=== PATIENT | female | born 1985 | race Caucasian/White ===

== ENCOUNTER 2016-06-21 11:42 | Emergency (ER) | payer OTHER ==
[2016-06-21 11:45] VITALS: TEMP 36.5; Ht 162.6 cm
[2016-06-21] MEDS ORDERED: CEPH500C PO (12:25)
[2016-06-21] MEDS ORDERED: SULF800T23 PO (12:25)
[2016-06-21] MEDS ORDERED: HYDR-5688 PO (12:27)
--- NOTE | 2016-06-21 12:27 | EMERGENCY ROOM VISIT NOTE ---
ED Visit Note First contact with patient: 11:52 CHIEF COMPLAINT: Left foot pain 4 days HISTORY OF PRESENT ILLNESS: Patient is a 31-year-old white female who presents to emergency department for evaluation of right foot pain 4 days. She states that her symptoms started 4 days ago with pain in the arch of her left foot only with weightbearing. Her symptoms markedly worsen 2 days ago, when the pain became more constant. She also noticed that the bottom of her foot became red, warm to the touch and swollen. It woke her from sleep that evening which prompted her to go to the emergency department at [facility]. She had x- rays performed which were negative and she was diagnosed with plantar fasciitis. She was prescribed ibuprofen 600 mg every 8 hours and prednisone for which she has taken one dose. She has applied ice to the foot. The ibuprofen is not helping with her pain. She notes pressure and tightness in the arch of her foot. She does have an appointment with a test case developer this coming week. She reports a history of cellulitis in her right lower extremity that was treated with Bactrim. She denies any history of MRSA. She does note some chronic scaling and cracking in the bottoms of her feet, but denies any trauma, falls or known skin injuries. She denies any fever or chills. There is been no drainage or discharge. There is no pain radiating into the calf or lower leg. She denies any numbness or tingling. REVIEW OF SYSTEMS: Review of systems as per HPI. All other systems reviewed were negative. At least 6 systems reviewed. PMH: Electronic medical records are reviewed and summarized as above/below. See Problem List. Her tetanus is up-to-date. SOCIAL HISTORY: Patient lives at home with her family. Employed. PHYSICAL EXAM: Vital Signs: Reviewed Nurse's notes. GENERAL: Well-appearing 31- year-old white female who is awake and alert and in no acute distress. She is afebrile. NEUROLOGICAL: Alert and cooperative. Sensory and motor functions grossly intact. INTEGUMENTARY: Examination of the plantar aspect of the patient's left foot noted moderate callus formation, cracking of the skin of the heel and ball of the foot. The arch of the foot is slightly swollen, and is warm to the touch. It is moderately tender. She does not have any pain over the heel pad or over the metatarsal heads. The toes are spared. There is no fluctuance or pointing noted. It is moderately indurated. There is no pain over the plantar aspect of the foot. No pain over the ankle. No lymphangitic streaking is noted. Full foot and ankle range of motion. EMERGENCY DEPARTMENT COURSE: The patient was seen and evaluated as above. There are concerns regarding infection in the bottom of her foot due to cracking and scaling. She had x-rays recently which were reportedly negative. She has no constitutional signs of illness or infection. I do not suspect abscess at this time and it was not felt that any additional imaging was warranted at this point. Osteomyelitis was felt to be unlikely. She was placed on Keflex and Bactrim and was educated on the worrisome signs or symptoms of infection for which she should return to the emergency department. She was advised to follow-up with her primary care provider and with the test case developer as she has scheduled. She was placed in a postoperative shoe and issued crutches. She was given a small prescription for [place] to use for discomfort. Patient was reviewed in the [facility] Prescription Drug Monitoring Program, and it was noted that she receives regular benzodiazepine prescriptions from her primary care providers, but no narcotics. Problem List Medical Problems: (1) Morbid obesity Status: Chronic Surgical Problems: (1) Hx of section Status: Resolved (2) Hx of cholecystectomy Status: Resolved Current/Historical Medications Scheduled Cephalexin Monohydrate (Keflex), 500 MG PO QID Citalopram Hydrobromide (Celexa), 20 MG PO HS Sulfa/Trimethoprim (Bactrim Ds 800MG/160MG), 1 TAB PO BID Scheduled PRN Alprazolam (Xanax), 0.5 MG PO DAILY PRN for Anxiety Hydrocodone/Acetaminophen 5MG/325MG ([place] 5MG/325MG), 1-2 TABLETS PO Q4 PRN for Pain Allergies Coded Allergies: Nickel (Verified Allergy, Intermediate, HIVES, 06/21/16) Amoxicillin (Verified Allergy, Unknown, HIVES, 06/21/16) Clavulanic Acid (Verified Allergy, Unknown, HIVES, 06/21/16) Penicillins (Verified Allergy, Unknown, HIVES, 06/21/16) Vital Signs Date Time Temp Pulse Resp B/P Pulse Ox O2 Delivery O2 Flow Rate FiO2 06/21/16 12:45 89 18 149/117 95 4/22/17 11:45 36.5 89 18 149/117 95 Room Air Departure Information Impression Primary Impression: Cellulitis of left foot Prescriptions Hydrocodone/Acetaminophen 5MG/325MG ([place] 5MG/325MG) Tab 1-2 TABLETS PO Q4 Y for Pain, #15 TAB For Initial Treatment Prov: Iraida Mercer PA 06/21/16 Sulfa/Trimethoprim (Bactrim Ds 800MG/160MG) Tab 1 TAB PO BID, #20 TAB Prov: Iraida Mercer PA 06/21/16 Cephalexin Monohydrate (Keflex) 500 Mg Cap 500 MG PO QID, #40 CAP Prov: Iraida Mercer PA 06/21/16 Referrals Maxx Lebron D.OHari (PCP) Patient Instructions My [facility] Additional Instructions Stop prednisone. Hydrocodone/Acetaminophen ([place]) 5/325 mg: Take 1-2 pills every four hours for breakthrough pain. Avoid alcohol, operating machinery or dangerous equipment, working on ladders or roofs, DRIVING, or situations where being under the influence may be dangerous. It is recommended to use an [id number] stool softener such as Colace, 100mg twice daily while taking this medication to avoid constipation. Cephalexin(Keflex) 500mg: Take one pill four times daily for 10 days for your skin infection. All antibiotics can cause diarrhea. If this occurs and you feel worse or it does not resolve in 1-2 days follow up with your doctor or return to the Emergency Department as this could be signs of serious underlying problems. Any medication can cause an allergic reaction, stop the pills immediately and return to the ER for rash, hives, breathing difficulties, or swelling. Trimethoprim-Sulfamethoxazole(Bactrim DS): Take one pill twice daily for 10 days for your skin infection. All antibiotics can cause diarrhea. If this occurs and you feel worse or it does not resolve in 1-2 days follow up with your doctor or return to the Emergency Department as this could be signs of serious underlying problems. Any medication can cause an allergic reaction, stop the pills immediately and return to the ER for rash, hives, breathing difficulties, or swelling. Ibuprofen(Motrin, Advil) may be used for fever or pain. Use 600mg every six hours as needed. Take with food. Avoid using more than 2400mg in a 24 hour period. Do not use 2400mg per day for more than three consecutive days without physician direction. Prolonged inappropriate use can lead to stomach upset or ulcers. (AND/OR) Acetaminophen(Tylenol) may be used for fever or pain. Use 1000mg every six hours as needed. Avoid using more than 3000mg in a 24 hour period. Warm compresses to the affected area 4 times daily for 15-20 minutes. Rest and drink plenty of fluids. Continue current medications. Return to the ER for severe pain, persistent fevers, spreading redness, or any worsening of your condition. Follow up with your primary physician within 2-3 days for a recheck of the current condition.
[2016-06-21] MEDS ORDERED: ALPR-411 PO (12:30)
[2016-06-21] MEDS ORDERED: CITA20TA9 PO (12:30)
[2016-06-21 12:45] VITALS: BP 149/117; PULSE 89; O2SAT 95
== END 2016-06-21 12:49 | disposition home or self-care (01) ==
LOC: C.EDB 11:44 → C.EDD 12:49
DX: L03.116 Cellulitis of left lower limb (principal); Z88.0 Allergy status to penicillin; Z88.1 Allergy status to other antibiotic agents; Z88.8 Allergy status to other drugs, medicaments and biological substances; Z91.09 Other allergy status, other than to drugs and biological substances; Z90.49 Acquired absence of other specified parts of digestive tract

== ENCOUNTER 2017-05-07 00:21 | Observation (INO) | payer OTHER ==
[~2017-05-07] VITALS: Ht 162.6 cm; Wt 182.5 kg
[2017-05-07] VITALS (10 sets, daily range): BP systolic 112–143; BP diastolic 70–92; PULSE 75–96; TEMP 36.5–36.8; O2SAT 95–98; Ht 162.6 cm; Wt 182.5 kg
[~2017-05-07 00:21] MED LIST: ALPR-411 PO; CITA20TA9 PO
[2017-05-07] MEDS ORDERED: LORAZEPAM 2 MG/ML 1 ML VIAL IV STA (00:37)
[2017-05-07] MEDS ORDERED: ASPIRIN 81 MG CHEW PO STA (00:52)
[2017-05-07] MEDS ORDERED: NITROGLYCERIN 0.4 MG SL PER TAB CHARGE SL STA (00:52)
[2017-05-07 01:07] LABS: ALBUMIN 3.7 gm/dl (3.4-5.0); ALT/SGPT 30 U/L (12-78); BLOOD UREA NITROGEN 18 mg/dl (7-18); CARBON DIOXIDE 28 mmol/L (21-32); GLUCOSE 104 mg/dl (70-99); LIPASE 71 U/L (73-393); POTASSIUM 3.4 mmol/L (3.5-5.1); SODIUM 139 mmol/L (136-145)
[2017-05-07 01:12] LABS: ALKALINE PHOSPHATASE 92 U/L (45-117); AST/SGOT 18 U/L (15-37); TOTAL PROTEIN 7.9 gm/dl (6.4-8.2)
[2017-05-07] MEDS ORDERED: POTASSIUM CHLORIDE 10 MEQ TABCR PO STA (01:14)
[2017-05-07 01:19] LABS: BASO % 0.2 %; BASO ABS # 0.03 K/uL (0-0.2); EOS % 2.5 %; EOS ABS # 0.32 K/uL (0-0.5); HEMATOCRIT 40.2 % (37-47); HEMOGLOBIN 12.6 g/dL (12.0-16.0); IG# 0.07 K/uL (0.00-0.02); LYMPH % 33.6 %; LYMPH ABS # 4.28 K/uL (1.2-3.4); MEAN CELL VOLUME 80.1 fL (80-100); MEAN CORPUSCULAR HEMOGLOBIN 25.1 pg (25-34); MEAN CORPUSCULAR HGB CONC 31.3 g/dl (32-36); MEAN PLATELET VOLUME 9.9 fL (7.4-10.4); MONO % 7.7 %; MONO ABS # 0.98 K/uL (0.11-0.59); NEUT % 55.4 %; NEUT ABS # 7.04 K/uL (1.4-6.5); PLATELET COUNT 217 K/uL (130-400); RED CELL DISTRIBUTION WIDTH CV 15.5 % (11.5-14.5); RED CELL DISTRIBUTION WIDTH SD 44.9 fL (36.4-46.3); WHITE BLOOD COUNT 12.72 K/uL (4.8-10.8)
--- NOTE | 2017-05-07 01:25 | EMERGENCY ROOM VISIT NOTE ---
History First contact with patient: 00:25 Chief Complaint: CHEST PAIN Stated Complaint: CHEST PAIN,SOB Nursing Triage Summary: PT presents with mid sternal chest pain started about 10 mins [employer] while PT was exercising. PT developed sudden onset of sharp mid sternal pain worse with movement and deep breathing. PT has SOB. denies N/A. PT is diaphoretic at this time. History of Present Illness The patient is a 32 year old female who presents to the Emergency Room with complaints of midsternal chest pain described as discomfort, ranging severity 8 out of 10. Activity makes it worse nothing makes it better. It does not radiate. Patient had a stress test a few years ago that was normal. No prior heart disease. This is the first time the patient has exercise. She was doing circuit training in the gym when she developed the chest pain. Patient states walking into the hospital made her symptoms worse. Nothing makes it better. Patient states there is a distant history of heart disease. Patient does not smoke. No known diabetes blood pressure cholesterol. Patient is morbidly obese. Patient states she feels quite anxious nauseous and sweaty. Patient denies dyspnea, abdominal pain, vomiting, diarrhea, back pain, jaw pain, leg pain or swelling, recent travel. No control. No history of blood clots. Review of Systems An 10 system review of systems was completed with positives and pertinent negatives listed in the HPI. Past Medical/Surgical History Medical Problems: (1) Morbid obesity Surgical Problems: (1) Hx of section (2) Hx of cholecystectomy Social History Smoking Status: Never Smoker Smokeless Tobacco Use: No Alcohol Use: none Drug Use: none Housing Status: lives with family Current/Historical Medications Scheduled Citalopram Hydrobromide (Celexa), 20 MG PO HS Scheduled PRN Alprazolam (Xanax), 0.5 MG PO DAILY PRN for Anxiety Physical Exam Vital Signs Date Time Temp Pulse Resp B/P (MAP) Pulse Ox O2 Delivery O2 Flow Rate FiO2 05/07/17 01:09 95 18 131/81 99 Room Air 05/07/17 01:05 85 22 136/91 100 Room Air 05/07/17 00:30 98 Room Air 05/07/17 00:30 98 Room Air 05/07/17 00:23 36.4 96 32 141/95 100 Room Air Physical Exam VITALS: Vitals are noted on the nurse's note and reviewed by myself. Vital signs hypertensive. GENERAL: White female morbidly obese anxious appearing mildly diaphoretic, in no acute distress, nondiaphoretic, well-developed well-nourished. SKIN: The skin was without rashes, erythema, edema, or bruising. There is no tenting of the skin. Capillary reflex less than 2 seconds. HEAD: Normocephalic atraumatic. EARS: External auditory canals clear, tympanic membranes pearly garcia without erythema or effusion bilaterally. EYES: Pupils equal round and reactive to light and accommodation. Conjunctivae without injection, sclerae without icterus. Extraocular movements intact. NOSE: Patent, turbinates without inflammation or discharge. . MOUTH: Mucous membranes moist. Pharynx without erythema or exudate. Uvula midline. Airway patent. Tongue does not deviate. NECK: Supple without nuchal rigidity. No lymphadenopathy. No thyromegaly. Cervical spine is nontender. No JVD. HEART: Regular rate and rhythm without murmurs gallops or rubs. Minimally tender to palpation midsternal. LUNGS: Clear to auscultation bilaterally without wheezes, rales or rhonchi. No retractions or accessory muscle use. ABDOMEN: Positive bowel sounds x 4. Normal tympanic percussion. Soft, protuberant, obese, nontender, without masses or organomegaly. Hudson sign negative. No guarding or rebound tenderness. No CVA tenderness MUSCULOSKELETAL: No muscle atrophy, erythema, noted. NEURO: Patient was alert and oriented to person place and time. Normal sensation to light and sharp touch. No focal neurological deficits. Medical Decision & Procedures Laboratory Results 05/07/17 00:30 Red Blood Count 5.02, Mean Corpuscular Volume 80.1, Mean Corpuscular Hemoglobin 25.1, Mean Corpuscular Hemoglobin Concent 31.3, Mean Platelet Volume 9.9, Neutrophils (%) (Auto) 55.4, Lymphocytes (%) (Auto) 33.6, Monocytes (%) (Auto) 7.7, Eosinophils (%) (Auto) 2.5, Basophils (%) (Auto) 0.2, Neutrophils # (Auto) 7.04, Lymphocytes # (Auto) 4.28, Monocytes # (Auto) 0.98, Eosinophils # (Auto) 0.32, Basophils # (Auto) 0.03 05/07/17 00:30 Test 05/07/17 00:30 05/07/17 00:39 White Blood Count 12.72 K/uL (4.8-10.8) Red Blood Count 5.02 M/uL (4.2-5.4) Hemoglobin 12.6 g/dL (12.0-16.0) Hematocrit 40.2 % (37-47) Mean Corpuscular Volume 80.1 fL (80-100) Mean Corpuscular Hemoglobin 25.1 pg (25-34) Mean Corpuscular Hemoglobin Concent 31.3 g/dl (32-36) Platelet Count 217 K/uL (130-400) Mean Platelet Volume 9.9 fL (7.4-10.4) Neutrophils (%) (Auto) 55.4 % Lymphocytes (%) (Auto) 33.6 % Monocytes (%) (Auto) 7.7 % Eosinophils (%) (Auto) 2.5 % Basophils (%) (Auto) 0.2 % Neutrophils # (Auto) 7.04 K/uL (1.4-6.5) Lymphocytes # (Auto) 4.28 K/uL (1.2-3.4) Monocytes # (Auto) 0.98 K/uL (0.11-0.59) Eosinophils # (Auto) 0.32 K/uL (0-0.5) Basophils # (Auto) 0.03 K/uL (0-0.2) RDW Standard Deviation 44.9 fL (36.4-46.3) RDW Coefficient of Variation 15.5 % (11.5-14.5) Immature Granulocyte % (Auto) 0.6 % Immature Granulocyte # (Auto) 0.07 K/uL (0.00-0.02) Anion Gap 7.0 mmol/L (3-11) Est Creatinine Clear Calc Drug Dose 144.2 ml/min Estimated GFR () 98.1 Estimated GFR (Non- 84.6 BUN/Creatinine Ratio 20.0 (10-20) Calcium Level 9.0 mg/dl (8.5-10.1) Total Bilirubin 0.3 mg/dl (0.2-1) Direct Bilirubin < 0.1 mg/dl (0-0.2) Aspartate Amino Transf (AST/SGOT) 18 U/L (15-37) Alanine Aminotransferase (ALT/SGPT) 30 U/L (12-78) Alkaline Phosphatase 92 U/L (45-117) Troponin I < 0.015 ng/ml (0-0.045) Total Protein 7.9 gm/dl (6.4-8.2) Albumin 3.7 gm/dl (3.4-5.0) Lipase 71 U/L (73-393) Human Chorionic Gonadotropin, Qual NEG (NEG) Bedside Troponin I < 0.030 ng/ml (0-0.045) Medications Administered Medications (Trade) Dose Ordered Sig/Sunni Route Start Time Stop Time Status Last Admin Dose Admin Lorazepam (Ativan Inj) 1 mg NOW STAT IV 05/07/17 00:37 05/07/17 00:38 DC 05/07/17 00:44 1 MG Aspirin (Aspirin Chew) 324 mg NOW STAT PO 05/07/17 00:52 05/07/17 00:53 DC 05/07/17 01:04 324 MG Nitroglycerin (Nitrostat Tab) 0.4 mg NOW STAT SL 05/07/17 00:52 05/07/17 00:53 DC 05/07/17 00:52 0.4 MG Potassium Chloride (Klor-Con M10) 10 meq NOW STAT PO 05/07/17 01:14 05/07/17 01:15 DC 05/07/17 01:14 10 MEQ ED Course Prior records/ancillary studies reviewed. Triage Nursing notes reviewed. The patient's history was concerning for chest pain. Differential diagnosis: Etiologies such as cardiac ischemia, aortic dissection, pulmonary embolism, pneumonia, pneumothorax, musculoskeletal, infections, pericarditis, myocarditis , esophageal rupture, gastrointestinal, as well as others were entertained. Physical examination: As above. ER treatment provided: Ativan, aspirin, nitroglycerin On reassessment the patient felt better. Diagnostic interpretation by me: The electrocardiogram was T-wave inversions and minimal ST depression in 1 and aVL, normal axis, normal intervals, rate of 86. EKG compared to prior EKG from April [address] depression and T-wave inversions in the anterior leads. Impression normal sinus rhythm with new ST depression and T-wave inversions in the anterior leads interpreted by myself The labs revealed negative troponin, negative hCG Imaging studies: Chest x-ray with no acute consolidation, pneumothorax or free of my depression Consultation: A consultation was placed with the hospitalist, Dr Rendon. The case was discussed and diagnostics were reviewed. The patient was evaluated in the ER for further treatment. Exam and history seem consistent with chest pain that could be cardiac in etiology. Patient did initially have EKG changes. She was given aspirin nitroglycerin and Ativan. This did resolve though. I reviewed her prior stress tests from 2016 that was normal. Patient had a normal EKG then. Patient will be evaluated by medicine for possible admission. By the evaluation outlined above emergent etiologies such as aortic dissection , pulmonary embolism, pneumonia, pneumothorax, infections, pericarditis, myocarditis, gastrointestinal, as well as others were deemed relatively unlikely. The pt informed about the findings as listed above. All questions were answered and pleased with the treatment. case reviewed with my Attending. The chart was completed utilizing [employer] Speech voice recognition software. Grammatical errors, random word insertions, pronoun errors, and incomplete sentences are an occassional consequence of this system due to software limitations, ambient noise, and hardware issues. Any formal questions or concerns about the content, text, or information contained within the body of this dictation should be directly addressed to the physician psychological assistant for clarification. Medical Decision As above Medication Reconcilliation Current Medication List: was personally reviewed by me Blood Pressure Screening Patient's blood pressure: Elevated blood pressure Blood pressure disposition: Elevated BP felt to be situational Impression Primary Impression: Substernal precordial chest pain Departure Information Dispostion Being Evaluated By Hospitalist Condition FAIR Referrals Maxx Lebron D.O. (PCP) Patient Instructions My [facility]
[2017-05-07] MEDS ORDERED: CITA10TA4 PO (01:29)
[2017-05-07] MEDS ORDERED: IV FLUIDS COMPLETED PRN (03:30)
[2017-05-07] MEDS ORDERED: ALPRAZOLAM 0.5 MG TAB PO PRN (03:45)
[2017-05-07] MEDS ORDERED: MoRPHine SULFATE 2 MG/ML CARP IV PRN (03:45)
[2017-05-07] MEDS ORDERED: ACETAMINOPHEN 325 MG TAB PO PRN ×2 (03:45→11:15)
[2017-05-07] MEDS ORDERED: NITROGLYCERIN 0.4 MG SL PER TAB CHARGE SL PRN (03:45)
[2017-05-07] MEDS ORDERED: POLYETHYLENE (MIRALAX) 17 GM PACK PO PRN (03:45)
[2017-05-07] MEDS ORDERED: ONDANSETRON INJ 2 MG/ML 2 ML VIAL IV PRN ×2 (03:45→11:15)
--- NOTE | 2017-05-07 03:57 | History and Physical ---
History & Physical Date & Time of Service: May 07, 2017 at 03:44 Chief Complaint: Chest Pain Primary Care Physician: Maxx Lebron D.O. History of Present Illness Source: patient, family, clinic records, hospital records The patient is a 32-year-old female presenting to the emergency room with midsternal chest pain after an intense workout at the gym. She reports that her chest pain came on after getting finished with the workout she is a non- smoker who has no known risk factors for cardiac disease other than obesity. She reports feeling anxious, nauseous, and sweaty in association with the pain. She denies any shortness of breath abdominal pain, vomiting, diarrhea, no back pain, or control or history of blood clots. 3 years ago she reports having chest pain with during a walking routine and received a stress test that was normal. She reports that nitroglycerin given in the ER took the chest pain away. She received aspirin 325 mg. In the ER she was afebrile and hemodynamically stable saturating 100% on room air. Physical exam was remarkable for minimal tenderness to palpation in the midsternal region. Lab results revealed a white blood cell count of 12,000, the patient has normal renal function. Troponin was negative. The ER physician noted T-wave inversions and minimal ST depressions in 1 and aVL on each rate of 86. These changes normalized with resolution of pain. Chest x-ray was performed with no acute consolidation pneumothorax. Of note she has a history of panic attacks and anxiety and was given a dose of Ativan in the ER that did not resolve. she reports new directions in her life that are positive with anxiety under control for the most part. Past Medical/Surgical History Medical Problems: (1) Abnormal Pap smear of cervix Status: Chronic (2) Anxiety Status: Chronic (3) Morbid obesity Status: Chronic (4) Morbid obesity Status: Chronic (5) Panic attacks Status: Chronic Surgical Problems: (1) Hx of section Status: Resolved (2) Hx of cholecystectomy Status: Resolved (3) S/P Status: Chronic (4) S/P suzette Status: Chronic Family History Patient reports no known family medical history. 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) Immunizations History of Influenza Vaccine: Yes Influenza Vaccine Date: Oct 31, 2014 History of Tetanus Vaccine?: Yes Tetanus Immunization Date: Sep 09, 2012 History of Pneumococcal: No History of Hepatitis B Vaccine: No Allergies Coded Allergies: Nickel (Verified Allergy, Intermediate, HIVES, 06/21/16) Amoxicillin (Verified Allergy, Unknown, HIVES, 06/21/16) Clavulanic Acid (Verified Allergy, Unknown, HIVES, 06/21/16) Penicillins (Verified Allergy, Unknown, HIVES, 06/21/16) Home Medications Scheduled Citalopram Hydrobromide (Citalopram Hydrobromide), 10 MG PO HS Scheduled PRN Alprazolam (Xanax), 0.5 MG PO TID PRN for Anxiety Review of Systems At least 10 systems were reviewed and negative except as indicated in HPI above Physical Exam Vital Signs Date Time Temp Pulse Resp B/P (MAP) Pulse Ox O2 Delivery O2 Flow Rate FiO2 05/07/17 02:41 97 18 124/77 98 Room Air 05/07/17 01:21 97 20 120/75 96 Room Air 05/07/17 01:09 95 18 131/81 99 Room Air 05/07/17 01:05 85 22 136/91 100 Room Air 05/07/17 00:30 98 Room Air 05/07/17 00:30 98 Room Air 05/07/17 00:23 36.4 96 32 141/95 100 Room Air General Appearance: no apparent distress, + obese Head: normocephalic, atraumatic Eyes: normal inspection, PERRL, sclerae normal ENT: normal ENT inspection, pharynx normal Neck: supple, no adenopathy, trachea midline Respiratory/Chest: chest non-tender, lungs clear, normal breath sounds, no respiratory distress, no accessory muscle use Cardiovascular: no edema, no gallop, no JVD, no murmur, normal peripheral pulses, + tachycardia Abdomen/GI: normal bowel sounds, non tender, soft, no organomegaly Back: normal inspection Extremities/Musculoskelatal: normal inspection, no calf tenderness, no pedal edema, normal range of motion Neurologic/Psych: director clinical information services II-XII nml as tested, no motor/sensory deficits, alert, normal mood/affect, oriented x 3 Skin: normal color, warm/dry, no rash Diagnostics Laboratory Results 05/07/17 00:30 Red Blood Count 5.02, Mean Corpuscular Volume 80.1, Mean Corpuscular Hemoglobin 25.1, Mean Corpuscular Hemoglobin Concent 31.3, Mean Platelet Volume 9.9, Neutrophils (%) (Auto) 55.4, Lymphocytes (%) (Auto) 33.6, Monocytes (%) (Auto) 7.7, Eosinophils (%) (Auto) 2.5, Basophils (%) (Auto) 0.2, Neutrophils # (Auto) 7.04, Lymphocytes # (Auto) 4.28, Monocytes # (Auto) 0.98, Eosinophils # (Auto) 0.32, Basophils # (Auto) 0.03 05/07/17 00:30 Test 05/07/17 00:30 05/07/17 00:39 White Blood Count 12.72 K/uL (4.8-10.8) Red Blood Count 5.02 M/uL (4.2-5.4) Hemoglobin 12.6 g/dL (12.0-16.0) Hematocrit 40.2 % (37-47) Mean Corpuscular Volume 80.1 fL (80-100) Mean Corpuscular Hemoglobin 25.1 pg (25-34) Mean Corpuscular Hemoglobin Concent 31.3 g/dl (32-36) Platelet Count 217 K/uL (130-400) Mean Platelet Volume 9.9 fL (7.4-10.4) Neutrophils (%) (Auto) 55.4 % Lymphocytes (%) (Auto) 33.6 % Monocytes (%) (Auto) 7.7 % Eosinophils (%) (Auto) 2.5 % Basophils (%) (Auto) 0.2 % Neutrophils # (Auto) 7.04 K/uL (1.4-6.5) Lymphocytes # (Auto) 4.28 K/uL (1.2-3.4) Monocytes # (Auto) 0.98 K/uL (0.11-0.59) Eosinophils # (Auto) 0.32 K/uL (0-0.5) Basophils # (Auto) 0.03 K/uL (0-0.2) RDW Standard Deviation 44.9 fL (36.4-46.3) RDW Coefficient of Variation 15.5 % (11.5-14.5) Immature Granulocyte % (Auto) 0.6 % Immature Granulocyte # (Auto) 0.07 K/uL (0.00-0.02) Anion Gap 7.0 mmol/L (3-11) Est Creatinine Clear Calc Drug Dose 144.2 ml/min Estimated GFR () 98.1 Estimated GFR (Non- 84.6 BUN/Creatinine Ratio 20.0 (10-20) Calcium Level 9.0 mg/dl (8.5-10.1) Total Bilirubin 0.3 mg/dl (0.2-1) Direct Bilirubin < 0.1 mg/dl (0-0.2) Aspartate Amino Transf (AST/SGOT) 18 U/L (15-37) Alanine Aminotransferase (ALT/SGPT) 30 U/L (12-78) Alkaline Phosphatase 92 U/L (45-117) Troponin I < 0.015 ng/ml (0-0.045) Total Protein 7.9 gm/dl (6.4-8.2) Albumin 3.7 gm/dl (3.4-5.0) Lipase 71 U/L (73-393) Human Chorionic Gonadotropin, Qual NEG (NEG) Bedside Troponin I < 0.030 ng/ml (0-0.045) Results Past 24 Hours Test 05/07/17 00:30 05/07/17 00:39 Range/Units White Blood Count 12.72 4.8-10.8 K/uL Red Blood Count 5.02 4.2-5.4 M/uL Hemoglobin 12.6 12.0-16.0 g/dL Hematocrit 40.2 37-47 % Mean Corpuscular Volume 80.1 80-100 fL Mean Corpuscular Hemoglobin 25.1 25-34 pg Mean Corpuscular Hemoglobin Concent 31.3 32-36 g/dl Platelet Count 217 130-400 K/uL Mean Platelet Volume 9.9 7.4-10.4 fL Neutrophils (%) (Auto) 55.4 % Lymphocytes (%) (Auto) 33.6 % Monocytes (%) (Auto) 7.7 % Eosinophils (%) (Auto) 2.5 % Basophils (%) (Auto) 0.2 % Neutrophils # (Auto) 7.04 1.4-6.5 K/uL Lymphocytes # (Auto) 4.28 1.2-3.4 K/uL Monocytes # (Auto) 0.98 0.11-0.59 K/uL Eosinophils # (Auto) 0.32 0-0.5 K/uL Basophils # (Auto) 0.03 0-0.2 K/uL RDW Standard Deviation 44.9 36.4-46.3 fL RDW Coefficient of Variation 15.5 11.5-14.5 % Immature Granulocyte % (Auto) 0.6 % Immature Granulocyte # (Auto) 0.07 0.00-0.02 K/uL Sodium Level 139 136-145 mmol/L Potassium Level 3.4 3.5-5.1 mmol/L Chloride Level 104 98-107 mmol/L Carbon Dioxide Level 28 21-32 mmol/L Anion Gap 7.0 3-11 mmol/L Blood Urea Nitrogen 18 7-18 mg/dl Creatinine 0.90 0.60-1.20 mg/dl Est Creatinine Clear Calc Drug Dose 144.2 ml/min Estimated GFR () 98.1 Estimated GFR (Non- 84.6 BUN/Creatinine Ratio 20.0 10-20 Random Glucose 104 70-99 mg/dl Calcium Level 9.0 8.5-10.1 mg/dl Total Bilirubin 0.3 0.2-1 mg/dl Direct Bilirubin < 0.1 0-0.2 mg/dl Aspartate Amino Transf (AST/SGOT) 18 15-37 U/L Alanine Aminotransferase (ALT/SGPT) 30 12-78 U/L Alkaline Phosphatase 92 45-117 U/L Troponin I < 0.015 0-0.045 ng/ml Total Protein 7.9 6.4-8.2 gm/dl Albumin 3.7 3.4-5.0 gm/dl Lipase 71 73-393 U/L Human Chorionic Gonadotropin, Qual NEG NEG Bedside Troponin I < 0.030 0-0.045 ng/ml Diagnostic Radiology Chest x-ray: A space no acute findings on admission chest x-ray per wet read. Normal EKG Impression Assessment and Plan 32-year-old female with chest pain 1. Chest pain-rule out cardiac etiology with serial troponins overnight. Consult cardiology in the morning for potential stress test. Patient was given aspirin 324 in the ER along with nitro which resolved her pain concerning for cardiac etiology. Risk factors include morbid obesity. EKG changes seen by ER physician were concerning for cardiac disease. Lipids in a.m. 2. Anxiety-controlled per patient. Continue citalopram and Xanax as needed. 3. Morbid obesity DVT prophylaxis SCDs Full code Disposition-telemetry Sangeetha Rendon DO [facility]. Resuscitation Status VTE Prophylaxis Will order VTE Prophylaxis: No Reason for no VTE drug order: Treatment not indicated Reason no Mechanical VTE Order: Treatment not indicated
--- NOTE | 2017-05-07 06:25 | DIAGNOSTIC IMAGING REPORT ---
CHEST ONE VIEW PORTABLE CLINICAL HISTORY: CHEST PAIN dyspnea COMPARISON STUDY: 09/05/2012 FINDINGS: The bones soft tissues and hemidiaphragms are normal. The cardiomediastinal silhouette is normal. The lungs are clear. The pulmonary vasculature is normal. IMPRESSION: Negative chest. The above report was generated using voice recognition software. It may contain grammatical, syntax or spelling errors. Electronically signed by: Pierce Esquivel M.D. 05/07/2017 6:24 AM Dictated Date/Time: 05/07/2017 6:24 AM
[2017-05-07] MEDS ORDERED: HEPARIN IV BOLUS 8,000 UNIT in SYRINGE 0 ML IV ONE (08:45)
[2017-05-07] MEDS ORDERED: HEPARIN 25,000 UNIT/500ML D5W 500 ML IV PRN (08:45)
[2017-05-07] MEDS ORDERED: DC ALL ANTICOAGULANTS ONE (09:00)
[2017-05-07] MEDS ORDERED: CITALOPRAM 20 MG TAB PO SCH (09:00)
[2017-05-07] MEDS ORDERED: ASPIRIN 81 MG ECTAB PO SCH (09:00)
--- NOTE | 2017-05-07 09:17 | Cardiology Consultation ---
Cardiology Consultation Date of Service May 07, 2017. Cardiology Consultation Indication: Consultation for chest pain History: This is a 32-year-old female with no prior history of heart disease and no family history of early heart disease. She does have a history of obesity which is her only risk factor. She was doing an intense workout yesterday. She had the sudden onset of anxiety with chest pain, shortness of breath and diaphoresis. She decided to present to the emergency department where she was admitted. Her first cardiac markers were negative however, her second troponin is now over 3. Her EKG has nonspecific ST and T-wave changes. She is currently pain-free with no chest pain. She has no prior history of smoking, diabetes, hypertension or hypercholesterolemia. Allergies: Amoxicillin, clavulanic acid, nickel, penicillins Reported Home Medications Medications Dose Route/Sig Max Daily Dose Days Date Category Citalopram Hydrobromide 10 Mg Tab 10 Mg PO HS 05/07/17 Reported Xanax (Alprazolam) 0.5 Mg Tab 0.5 Mg PO TID PRN 06/21/16 Reported Past medical history: As outlined above the patient has no prior history of heart disease. No history of diabetes, strokes, kidney disease, hypertension, diabetes, hypercholesterolemia. Social history: Patient is a non-smoker. Family medical history: There is a family history of diabetes. No significant cardiac history before the age of 50. General: The patient denies weight change, night sweats, fever, chills. Head: The patient denies headache and prior head trauma. Cardiovascular: The patient denies chest pain or chest discomfort, dyspnea on exertion, palpitations, PND, orthopnea, edema, spontaneous shortness of breath, syncope and near syncope. Pulmonary: The patient denies cough, wheeze, pleurisy, hemoptysis, sputum, and excessive snoring. Gastrointestinal: The patient denies nausea, vomiting, diarrhea, constipation, bloating, hematemesis, hematochezia, and abdominal pain. Skin: The patient denies diaphoresis and rash. Musculoskeletal: The patient denies joint pain, joint swelling, myalgia, back pain, neck pain and prior injuries. Neurological: The patient denies prior stroke and seizures Vital Signs Past 12 Hours Date Time Temp Pulse Resp B/P (MAP) Pulse Ox O2 Delivery O2 Flow Rate FiO2 05/07/17 07:27 36.5 96 18 123/76 (92) 97 Room Air 05/07/17 04:00 Room Air 05/07/17 03:20 36.7 88 20 134/83 97 Room Air 05/07/17 02:41 97 18 124/77 98 Room Air 05/07/17 01:21 97 20 120/75 96 Room Air 05/07/17 01:09 95 18 131/81 99 Room Air 05/07/17 01:05 85 22 136/91 100 Room Air 05/07/17 00:30 98 Room Air 05/07/17 00:30 98 Room Air 05/07/17 00:23 36.4 96 32 141/95 100 Room Air General Appearance: Alert and Oriented x3. NAD. Head: Normocephalic Atraumatic. Eyes: PERRLA, EOMI, conjunctiva and sclera clear Neck: Supple. No carotid bruits noted. No JVD. No HJD. Respiratory: Breath sounds clear to auscultation bilaterally. No w/r/r. Cardiovascular: Reg rate and rhythm. S1 and S2 noted. No murmurs, rubs, gallops. PMI non displace. Abdomen: Normal bowel sounds, soft nontender. no abdominal bruits. Extremities: No edema, no clubbing or cyanosis. distal pulses 2/4 bilaterally. Neuro: No focal deficits. Psychiatric: Normal affect. Last 24 Hours Test 05/07/17 00:30 05/07/17 00:39 05/07/17 07:08 05/07/17 08:55 White Blood Count 12.72 K/uL Red Blood Count 5.02 M/uL Hemoglobin 12.6 g/dL Hematocrit 40.2 % Mean Corpuscular Volume 80.1 fL Mean Corpuscular Hemoglobin 25.1 pg Mean Corpuscular Hemoglobin Concent 31.3 g/dl Platelet Count 217 K/uL Mean Platelet Volume 9.9 fL Neutrophils (%) (Auto) 55.4 % Lymphocytes (%) (Auto) 33.6 % Monocytes (%) (Auto) 7.7 % Eosinophils (%) (Auto) 2.5 % Basophils (%) (Auto) 0.2 % Neutrophils # (Auto) 7.04 K/uL Lymphocytes # (Auto) 4.28 K/uL Monocytes # (Auto) 0.98 K/uL Eosinophils # (Auto) 0.32 K/uL Basophils # (Auto) 0.03 K/uL RDW Standard Deviation 44.9 fL RDW Coefficient of Variation 15.5 % Immature Granulocyte % (Auto) 0.6 % Immature Granulocyte # (Auto) 0.07 K/uL Sodium Level 139 mmol/L Potassium Level 3.4 mmol/L Chloride Level 104 mmol/L Carbon Dioxide Level 28 mmol/L Anion Gap 7.0 mmol/L Blood Urea Nitrogen 18 mg/dl Creatinine 0.90 mg/dl Est Creatinine Clear Calc Drug Dose 144.2 ml/min Estimated GFR () 98.1 Estimated GFR (Non- 84.6 BUN/Creatinine Ratio 20.0 Random Glucose 104 mg/dl Calcium Level 9.0 mg/dl Total Bilirubin 0.3 mg/dl Direct Bilirubin < 0.1 mg/dl Aspartate Amino Transf (AST/SGOT) 18 U/L Alanine Aminotransferase (ALT/SGPT) 30 U/L Alkaline Phosphatase 92 U/L Troponin I < 0.015 ng/ml 3.280 ng/ml Total Protein 7.9 gm/dl Albumin 3.7 gm/dl Lipase 71 U/L Human Chorionic Gonadotropin, Qual NEG Bedside Troponin I < 0.030 ng/ml Triglycerides Level 55 mg/dl Cholesterol Level 143 mg/dl HDL Cholesterol 50 mg/dl LDL Cholesterol, Calculated 82 mg/dl VLDL Cholesterol, Calculated 11 mg/dl Cholesterol/HDL Ratio 2.9 Impression: 1. Non-STEMI 2. Obesity 3. Family history diabetes Recommendations: I have had a long discussion with the patient. I discussed the significance of the elevated cardiac markers and the risks associated with this abnormal lab test. I have recommended that we proceed with a cardiac catheterization. I have explained the risks benefits and intent of the procedure including the potential for catheter based intervention such as balloon angioplasty and intracoronary stents. The patient is willing to proceed and we will do that today. The hospitalist has ordered some heparin which I think is appropriate however since we are going to be taking her urgently to the [facility] I would rather hold off until we have arterial access to reduce the risk of bleeding. Thank you Dr. Ferrer
[2017-05-07] MEDS ORDERED: SODIUM CHLORIDE 0.9% 1000ML 1,000 ML IV SCH ×2 (09:30→11:11)
[2017-05-07] MEDS ORDERED: FENTANYL CITRATE INJ 50 MCG/1 ML 2 ML VIAL ONE (10:23)
[2017-05-07] MEDS ORDERED: HEPARIN SOD (PORCINE) 1000 UNIT/ML 10 ML VIAL ONE (10:23)
[2017-05-07] MEDS ORDERED: MIDAZOLAM HCL 1 MG/ML 2ML VIAL ONE (10:23)
[2017-05-07] MEDS ORDERED: NiCARDipine HCL INJ 2.5 MG/ML 10 ML AMP ONE (10:23)
[2017-05-07] MEDS ORDERED: NITROGLYCERIN/D5W 100MCG/ML 20ML SYR ONE (10:24)
[2017-05-07] MEDS ORDERED: LIDOCAINE HCL 1% 20 ML VIAL ONE (10:24)
[2017-05-07] MEDS ORDERED: SODIUM CHLORIDE 0.9% 1000ML 250 ML IV PRN (11:11)
--- NOTE | 2017-05-07 11:13 | Pre Sedation Assessment ---
Pre Sedation Assessment General Date of Sedation: May 07, 2017. Vital Signs Past 12 Hours Date Time Temp Pulse Resp B/P (MAP) Pulse Ox O2 Delivery O2 Flow Rate FiO2 05/07/17 11:08 65 18 148/81 (103) 99 Mask 2 05/07/17 08:00 97 Room Air 05/07/17 07:27 36.5 96 18 123/76 (92) 97 Room Air 05/07/17 04:00 Room Air 05/07/17 03:20 36.7 88 20 134/83 97 Room Air 05/07/17 02:41 97 18 124/77 98 Room Air 05/07/17 01:21 97 20 120/75 96 Room Air 05/07/17 01:09 95 18 131/81 99 Room Air 05/07/17 01:05 85 22 136/91 100 Room Air 05/07/17 00:30 98 Room Air 05/07/17 00:30 98 Room Air 05/07/17 00:23 36.4 96 32 141/95 100 Room Air Review Cardiovascular: regular rate, rhythm Lungs: lungs clear, normal breath sounds Pre-Sedation Airway Assessment Smoking Status: Never Smoker Hx of Sleep Apnea: No Short Thick Neck: Yes Thyro-mental Distance: > 3 Finger Breadths Oral Cavity: WNL Mallampati Classification: Class III ASA Classification: Class II NPO Status Date of Last Intake of Fluids: May 06, 2017 Time of Last Intake of Fluids: 2099 Date of Last Intake of Solids: May 06, 2017 Time of Last Intake of Solids: 2099 Procedure Planning Contraindications for Sedation: None Current Medications Reviewed: Yes Notes The planned sedation has been discussed with the patient. Informed Consent was obtained. I have identified the patient, determined the appropriateness of sedation and have assessed the patient immediately prior to the procedure. All medicine(s) and interventions are by my order.
--- NOTE | 2017-05-07 11:14 | Post Sedation Assessment ---
Post Sedation Assessment General Date of Sedation May 07, 2017. Vital Signs: Vital Signs Past 12 Hours Date Time Temp Pulse Resp B/P (MAP) Pulse Ox O2 Delivery O2 Flow Rate FiO2 05/07/17 11:08 65 18 148/81 (103) 99 Mask 2 05/07/17 08:00 97 Room Air 05/07/17 07:27 36.5 96 18 123/76 (92) 97 Room Air 05/07/17 04:00 Room Air 05/07/17 03:20 36.7 88 20 134/83 97 Room Air 05/07/17 02:41 97 18 124/77 98 Room Air 05/07/17 01:21 97 20 120/75 96 Room Air 05/07/17 01:09 95 18 131/81 99 Room Air 05/07/17 01:05 85 22 136/91 100 Room Air 05/07/17 00:30 98 Room Air 05/07/17 00:30 98 Room Air 05/07/17 00:23 36.4 96 32 141/95 100 Room Air Post Procedure Recovery Score Activity: (2) Moves 4 extremities * Respiration: (2) Deep breath/cough Circulation: (2) +/-20% PreAnes Value Consciousness: (2) Fully Awake Oxygen Saturation: (2) > 92% On Room Air Post Anesthesia Score: 10 Discharge Sedation Level of Care: Fast Track Phase II Post Sedation Plan On clinical assessment, the patient appears to have tolerated the sedation without complications. Patient is recovering as anticipated. Patient will continue to be monitored by nursing and may be discharged when sedation discharge criteria are met per below protocol. Upon Completions of procedure and additional 15 minutes continue every 5 minute vital signs and the P.A.R. score; then discharge to a Phase I or Fast Track to Phase II per the following guidelines: * Discharge Patient to appropriate Phase II area if PAR is 8 or greater or return to pre- procedure baseline. The post - procedure orders will be as directed. * If PAR score is less than 8 or not return to pre-procedure baseline then patient will follow Phase I monitoring till PAR is reached for Phase II. The Phase I may be done in procedure room or may call to secure a Phase I area. * If naloxone or flumazenil are used for reversal, hold in Phase I for an additional 60 -120 minutes before discharge to Phase II. Please call the Sedation Physician to re-evaluate and complete post-note for discharge to Phase II area. Do NOT discharge from procedure sedation or Phase 1 until post- sedation evaluation note is complete by procedure /sedation MD Sedation Discharge Instructions to be given to the patient at discharge to home.
[2017-05-07] MEDS ORDERED: ATROPINE SULFATE 0.1 MG/ML 5ML SYR IV PRN (11:15)
--- NOTE | 2017-05-07 11:16 | Discharge Instructions ---
Discharge Instructions Procedure Procedure Date: May 07, 2017. Reason for Visit: Chest Pain. Discharge Discharge Date: May 07, 2017. Discharge Diagnosis: Normal Heart Cath Problem List: Medical Problems: (1) Substernal precordial chest pain Status: Acute Last Recorded Wt (Kilograms): 182.500 Anesthesia Post Anesthesia Instructions: If you have had General Anesthesia or IV Sedation: * Do not drive today. * Resume driving when surgeon permits. * Do not make important decisions or sign legal documents today. * Call surgeon for: 1. Temperature elevations greater than 101 degrees F. 2. Uncontrollable pain. 3. Excessive bleeding. 4. Persistent nausea and vomiting. 5. Medication intolerance (nausea, vomiting or rash). * For nausea and vomiting use only clear liquids such as: tea, soda, bouillon until nausea subsides, then gradually increase diet as tolerated. * If you have any concerns or questions, call your surgeon's office. If physician is unavailable and it is an emergency, call 911 or go to the nearest emergency room. Instructions Activity Recommendations: limitations Recommended Home Diet: resume previous diet Allergies: Coded Allergies: Nickel (Verified Allergy, Intermediate, HIVES, 06/21/16) Amoxicillin (Verified Allergy, Unknown, HIVES, 06/21/16) Clavulanic Acid (Verified Allergy, Unknown, HIVES, 06/21/16) Penicillins (Verified Allergy, Unknown, HIVES, 06/21/16) Provider Instructions ACTIVITY RECOMMENDATIONS: Excess manipulation of the wrist should be avoided for the next 24-48 hours. * No lifting over 2 pounds (approximately a 1/2 gallon of milk) with the utilized arm for 24 hours. * No strenuous activity such as bowling or tennis for 3 days. * Keep the site of the procedure covered with a bandage for 24 hours. *You may shower the day after the procedure. Do not take a tub bath or submerge the puncture site in water for the next 3 days. *Do not operate any motorized equipment for 3 days. SPECIAL CARE INSTRUCTIONS: The site may be slightly bruised and sore following your procedure. Should any of the following occur, contact the DrHari who performed your procedure. 1. Redness/inflammation, swelling, chills, or fever, or colored drainage at procedure site within 3-7 days after your procedure. 2. Coldness, discoloration, ongoing numbness, severe pain, or swelling. Expect mild tingling of hand and tenderness at the puncture site for up to three days. If this persists beyond three days, or other symptoms develop, notify the Dr. who performed your procedure. BLEEDING: If the procedure site on your wrist begins to bleed, do not panic 1. Place 1 or 2 fingers firmly just slightly above the insertion site to stop the bleeding. You may be able to feel your pulse as you hold pressure. 2. Lift your finger after 5 minutes to see if the bleeding has stopped. 3. Once the bleeding has stopped, gently wipe the wrist area clean with a bandage. * If the bleeding from your wrist does not stop after 10 minutes, or if there is a large amount of bleeding or spurting, call 911 ([address] drive yourself to the hospital). SKIN IRRITATION: * You may experience some redness and/or swelling in the area where radiation was administered. If any skin irritation occurs, please contact your family physician. FOLLOW UP VISIT: Keep any scheduled doctor appointments. Follow Up Mark Day Recommendations: Call your doctor if: * Temperature above 101 degrees * Pain not relieved by pain medicine ordered * There is increased drainage or redness from any incision * You have any unanswered questions or concerns. Your Doctors Instructions noted above were prepared by provider Tee Ferrer. Patient Signature Section: Patient Instructions Signature Page Sandy Gomes Patient (or Guardian) Signature/Date: I have read and understand the instructions given to me by my caregivers. Caregiver/RN/Doctor Signature/Date: The above-named patient and/or guardian has received patient instructions on this date. + Original Patient Signature Page (only) stays with chart. Please make copy for patient.
--- NOTE | 2017-05-07 11:27 | Procedure Note ---
Cardiac Cath Report Procedure: 1. left heart catheterization 2. Left ventriculogram 3. Coronary angiography History: This is a 32-year-old female who presented with chest pain, diaphoresis following an intensive workout. After admission her cardiac markers were elevated. Procedure summary: After informed consent was obtained the patient was taken to the cardiac catheterization lab and prepped and draped in the usual manner for right transradial approach. Preformed 5 Maori diagnostic catheters were utilized for the coronary angiograms. A 5 Maori pigtail catheter was utilized for the left ventriculogram and left heart pressures. Following the procedure patient was returned to her room in stable condition. Coronary angiography: Selective injections of the left coronary artery revealed a left main trunk to be patent. The left circumflex consists of a high marginal branch which then continues to the posterior septum and a second marginal branch which supplies the lateral myocardium. The left circumflex artery is widely patent and within normal limits. There is a ramus branch from the left main trunk which is large , widely patent and within normal limits. The LAD extends all the way to the apex of the heart. The LAD gives off a single large diagonal branch. The LAD system is widely patent and within normal limits. The right coronary artery is codominant with the left. Selective injections of the right coronary artery reveal it to be widely patent and within normal limits. Left ventriculogram: The left ventricle is of normal size with normal systolic function. Estimated left ventricular ejection fraction is 60%. The mitral valve is competent. The aortic root and ascending aorta have normal morphology. The LVEDP is 20. Summary: The patient has widely patent and normal coronary arteries and normal LV function. Recommendations: Medical management and counseling.
--- NOTE | 2017-05-07 11:30 | Cardiac Catheterization ---
Procedure Note Procedure Date May 07, 2017. Pre-Procedure Diagnosis Non STEMI AUC Score 9 Post-Procedure Diagnosis Normal Coronary Arteries, Normal LV Systolic Function, Normal Intracardiac Pressures Procedure(s) Performed Coronary Angiography, Left Heart Cath, LV Angiography Net Coordinator Dr. Ferrer Voltage Inspector(s) None Estimated Blood Loss None Medication(s) Heparin, Versed, Lidocaine 1% Summary of Findings See dictated report Hemodynamics Rest Ao: 114/81 Final Ao: 125/80 LV: 124/20 Recommendations Medical therapy and/or Counseling Specimens None Radiation Exposure (mGy) 1820 Contrast (mls) 107 Procedural Complication(s) None Disposition PCU ACC Data Cardiac Status Clinical evaluation leading to the procedure CAD Presntation: Non STEMI Anginal Classification: CCS I Heart Failure: No Cardiogenic Shock w/in 24Hrs: No Cardiac Arrest w/in 24Hrs: No Imaging studies past 6 months: No Stress studies past 6 months: No Coronary Anatomy Dominant: Co-dominant Left Main (% Stenosis): Normal LAD (% Stenosis): Normal Circumflex (% Stenosis): Normal RCA (% Stenosis): Normal Left Ventricular Angiography EF (%): 60 Mitral Regurgitation: None Diagnostic Status: Urgent Closure Device Percutaneous Entry Location: Radial Closure Device: Radial Band Recommendations: Medical therapy and/or Counseling
--- NOTE | 2017-05-07 15:46 | ECHOCARDIOGRAM REPORT ---
*NOTICE TO RECEIVING [employer] This information is strictly Confidential and protected under [place] law. [place] law prohibits you from making any further disclosure of this information unless further disclosure is expressly permitted by the written consent of the person to whom it pertains or is authorized by law. A general authorization for the release of medical or other information is not sufficient for this purpose. Hospital accepts no responsibility if the information is made available to any other person, INCLUDING THE PATIENT. Interpretation Summary * Name: YULISA JONES Study Date: 05/07/2017 02:34 PM BP: 131/70 mmHg * Patient Location: [facility]\S\N281\S\2 HR: 75 * : 1985 (M/d/yyyy) Gender: Female Height: 64 in * Age: 32 yrs Ethnicity: [place] Weight: 402 lb * Ordering Physician: Gonzalo Tracey * Referring Physician: Self, Referred * Performed By: Mag Crump RDCS * * Reason For Study: CHEST PAIN * BSA: 2.6 m2 * This was essentially a normal study. Procedure Details * A contrast injection of Definity was performed to improve assessment of LV function. * Contrast was injected into an intravenous site in the right arm. * One vial of Definity ultrasound contrast was diluted in normal saline to a total volume of 10 ml. A total of '1' ml of solution was administered during imaging. * Lot # [id number] of Definity utilized for procedure. * Expiration date 1 APR 20. * The attending nurse who injected the contrast agent was MARCELINO BEARDEN. Left Ventricle * The left ventricle is normal in size. * There is normal left ventricular wall thickness. * Ejection Fraction = 55-60%. * Left ventricular systolic function is normal. Right Ventricle * The right ventricle is normal in size and function. * There is normal right ventricular wall thickness. * The right ventricular systolic function is normal. Atria * The left atrial size is normal. * Right atrial size is normal. * The interatrial septum is intact with no evidence for an atrial septal defect. Mitral Valve * The mitral valve is normal in structure and function. * There is no mitral valve stenosis. * There is no mitral regurgitation noted. Tricuspid Valve * The tricuspid valve is normal in structure and function. * There is trace tricuspid regurgitation. Aortic Valve * The aortic valve is normal in structure and function. * No aortic regurgitation is present. Pulmonic Valve * The pulmonic valve is normal in structure and function. * There is no pulmonic valvular regurgitation. Great Vessels * The aortic root is normal size. * No obvious dissection could be visualized. * The pulmonary artery is normal size. Pericardium/Pleural * There is no pericardial effusion. MMode 2D Measurements and Calculations IVSd 1.5 cm IVSs 1.7 cm LVIDd 5.0 cm LVIDs 3.6 cm LVPWd 1.4 cm LVPWs 2.1 cm IVS/LVPW 1.0 FS 28.5 % EDV(Teich) 119.3 ml ESV(Teich) 54.1 ml EF(Teich) 54.6 % EDV(cubed) 126.5 ml ESV(cubed) 46.3 ml EF(cubed) 63.4 % % IVS thick 11.0 % % LVPW thick 46.8 % LV mass(C)d 312.3 grams LV mass(C)dI 118.7 grams/m\S\2 LV mass(C)s 292.0 grams LV mass(C)sI 111.0 grams/m\S\2 SV(Teich) 65.2 ml SI(Teich) 24.8 ml/m\S\2 SV(cubed) 80.2 ml SI(cubed) 30.5 ml/m\S\2 Ao root diam 2.9 cm Ao root area 6.7 cm\S\2 LA dimension 4.2 cm LA/Ao 1.4 LVAd ap4 39.9 cm\S\2 LVLd ap4 9.7 cm EDV(MOD-sp4) 134.9 ml EDV(sp4-el) 138.6 ml LVAs ap4 22.8 cm\S\2 LVLs ap4 7.7 cm ESV(MOD-sp4) 55.0 ml ESV(sp4-el) 56.8 ml EF(MOD-sp4) 59.3 % EF(sp4-el) 59.1 % LVAd ap2 43.1 cm\S\2 LVLd ap2 9.7 cm EDV(MOD-sp2) 160.2 ml EDV(sp2-el) 162.7 ml LVAs ap2 25.8 cm\S\2 LVLs ap2 8.2 cm ESV(MOD-sp2) 67.8 ml ESV(sp2-el) 68.3 ml EF(MOD-sp2) 57.7 % EF(sp2-el) 58.0 % LVLd %diff -0.79 % EDV(MOD-bp) 149.0 ml LVLs %diff 6.0 % ESV(MOD-bp) 61.3 ml EF(MOD-bp) 58.8 % SV(MOD-sp4) 80.0 ml SI(MOD-sp4) 30.4 ml/m\S\2 SV(MOD-sp2) 92.4 ml SI(MOD-sp2) 35.1 ml/m\S\2 SV(MOD-bp) 87.6 ml SI(MOD-bp) 33.3 ml/m\S\2 SV(sp4-el) 81.9 ml SI(sp4-el) 31.1 ml/m\S\2 SV(sp2-el) 94.4 ml SI(sp2-el) 35.9 ml/m\S\2 Doppler Measurements and Calculations MV E max ceci 96.4 cm/sec MV A max ceci 55.5 cm/sec MV E/A 1.7 MV dec time 0.25 sec Ao V2 max 153.3 cm/sec Ao max PG 9.4 mmHg Ao max PG (full) 4.4 mmHg LV V1 max PG 5.0 mmHg LV V1 max 111.4 cm/sec
--- NOTE | 2017-05-07 16:37 | Progress Note ---
Internal Med Progress Note Date of Service: May 07, 2017. Provider Documentation: SUBJECTIVE: Patient s/p cardiac cath and resting echo. Patient denies pain or shortness of breath OBJECTIVE: Exam: General - no acute distress Eyes- EOMI ENT- loud snoring when sleeping Neck- midline trachea, no JVD Lungs- CTABL Heart- Regular rate Abdomen- truncal obesity, soft, nontender, nondistended Extremities- no edema Neuro- awake and alert ASSESSMENT & PLAN: Hospital Course 32-year-old female with no prior history of heart disease and no family history of early heart disease. She does have a history of obesity which is her only risk factor. She was doing an intense workout yesterday. She had the sudden onset of anxiety with chest pain, shortness of breath and diaphoresis. She decided to present to the emergency department where she was admitted. Patient had troponin first troponin negative but second troponin 3.28 and decision was made by cardiology to perform cardiac cath. The third troponin was downtrended to 2.57. Patient's cardiac cath did show coronary artery disease and she had normal echocardiogram. Also no evidence for Takotsubo cardiomyopathy. 05/07/17 Coronary Anatomy Dominant: Co-dominant Left Main (% Stenosis): Normal LAD (% Stenosis): Normal Circumflex (% Stenosis): Normal RCA (% Stenosis): Normal Left Ventricular Angiography EF (%): 60 Mitral Regurgitation: None Echocardiogram 05/07/17 Left Ventricle * The left ventricle is normal in size. * There is normal left ventricular wall thickness. * Ejection Fraction = 55-60%. * Left ventricular systolic function is normal. Right Ventricle * The right ventricle is normal in size and function. * There is normal right ventricular wall thickness. * The right ventricular systolic function is normal. Atria * The left atrial size is normal. * Right atrial size is normal. * The interatrial septum is intact with no evidence for an atrial septal defect. Mitral Valve * The mitral valve is normal in structure and function. * There is no mitral valve stenosis. * There is no mitral regurgitation noted. Tricuspid Valve * The tricuspid valve is normal in structure and function. * There is trace tricuspid regurgitation. Aortic Valve * The aortic valve is normal in structure and function. * No aortic regurgitation is present. Pulmonic Valve * The pulmonic valve is normal in structure and function. * There is no pulmonic valvular regurgitation. Great Vessels * The aortic root is normal size. * No obvious dissection could be visualized. * The pulmonary artery is normal size. Pericardium/Pleural * There is no pericardial effusion. Discharge Instructions Patient is discharged after being evaluated for chest pain and for work up to rule out acute coronary syndrome. Despite elevated troponin level, there is no evidence for coronary artery disease or cardiomyopathy Patient is advised to follow up with primary care doctor. Patient also noted to have very loud snoring on physical exam and should be evaluated by primary care doctor if she has risk for obstructive sleep apnea. * Do not drive today. * Resume driving when surgeon permits. * Do not make important decisions or sign legal documents today. ACTIVITY RECOMMENDATIONS: Excess manipulation of the wrist should be avoided for the next 24-48 hours. * No lifting over 2 pounds (approximately a 1/2 gallon of milk) with the utilized arm for 24 hours. * No strenuous activity such as bowling or tennis for 3 days. * Keep the site of the procedure covered with a bandage for 24 hours. *You may shower the day after the procedure. Do not take a tub bath or submerge the puncture site in water for the next 3 days. *Do not operate any motorized equipment for 3 days. SPECIAL CARE INSTRUCTIONS: The site may be slightly bruised and sore following your procedure. Should any of the following occur, contact the Dr. who performed your procedure. 1. Redness/inflammation, swelling, chills, or fever, or colored drainage at procedure site within 3-7 days after your procedure. 2. Coldness, discoloration, ongoing numbness, severe pain, or swelling. Expect mild tingling of hand and tenderness at the puncture site for up to three days. If this persists beyond three days, or other symptoms develop, notify the Dr. who performed your procedure. BLEEDING: If the procedure site on your wrist begins to bleed, do not panic 1. Place 1 or 2 fingers firmly just slightly above the insertion site to stop the bleeding. You may be able to feel your pulse as you hold pressure. 2. Lift your finger after 5 minutes to see if the bleeding has stopped. 3. Once the bleeding has stopped, gently wipe the wrist area clean with a bandage. * If the bleeding from your wrist does not stop after 10 minutes, or if there is a large amount of bleeding or spurting, call 911 (do not drive yourself to the hospital). SKIN IRRITATION: * You may experience some redness and/or swelling in the area where radiation was administered. If any skin irritation occurs, please contact your family physician. Call your doctor if: * Temperature above 101 degrees * Pain not relieved by pain medicine ordered * There is increased drainage or redness from any incision * You have any unanswered questions or concerns. Vital Signs: Date Time Temp Pulse Resp B/P (MAP) Pulse Ox O2 Delivery O2 Flow Rate FiO2 05/07/17 16:00 Room Air 05/07/17 15:33 36.6 83 18 132/84 (100) 97 Room Air 05/07/17 14:15 36.8 75 20 131/70 (90) 98 Room Air 05/07/17 13:23 79 20 112/72 (85) 96 05/07/17 12:45 36.8 84 20 127/78 (94) 95 Room Air 05/07/17 12:11 82 20 133/92 (106) 97 05/07/17 12:04 36.8 84 20 143/80 (101) 95 Room Air 05/07/17 12:00 Room Air 05/07/17 11:23 85 18 133/77 (95) 95 Room Air 05/07/17 11:08 65 18 148/81 (103) 99 Mask 2 05/07/17 08:00 97 Room Air 05/07/17 07:27 36.5 96 18 123/76 (92) 97 Room Air 05/07/17 04:00 Room Air 05/07/17 03:20 36.7 88 20 134/83 97 Room Air 05/07/17 02:41 97 18 124/77 98 Room Air 05/07/17 01:21 97 20 120/75 96 Room Air 05/07/17 01:09 95 18 131/81 99 Room Air 05/07/17 01:05 85 22 136/91 100 Room Air 05/07/17 00:30 98 Room Air 05/07/17 00:30 98 Room Air 05/07/17 00:23 36.4 96 32 141/95 100 Room Air Lab Results: Results Past 24 Hours Test 05/07/17 00:30 05/07/17 00:39 05/07/17 07:08 05/07/17 08:55 Range/Units White Blood Count 12.72 4.8-10.8 K/uL Red Blood Count 5.02 4.2-5.4 M/uL Hemoglobin 12.6 12.0-16.0 g/dL Hematocrit 40.2 37-47 % Mean Corpuscular Volume 80.1 80-100 fL Mean Corpuscular Hemoglobin 25.1 25-34 pg Mean Corpuscular Hemoglobin Concent 31.3 32-36 g/dl Platelet Count 217 130-400 K/uL Mean Platelet Volume 9.9 7.4-10.4 fL Neutrophils (%) (Auto) 55.4 % Lymphocytes (%) (Auto) 33.6 % Monocytes (%) (Auto) 7.7 % Eosinophils (%) (Auto) 2.5 % Basophils (%) (Auto) 0.2 % Neutrophils # (Auto) 7.04 1.4-6.5 K/uL Lymphocytes # (Auto) 4.28 1.2-3.4 K/uL Monocytes # (Auto) 0.98 0.11-0.59 K/uL Eosinophils # (Auto) 0.32 0-0.5 K/uL Basophils # (Auto) 0.03 0-0.2 K/uL RDW Standard Deviation 44.9 36.4-46.3 fL RDW Coefficient of Variation 15.5 11.5-14.5 % Immature Granulocyte % (Auto) 0.6 % Immature Granulocyte # (Auto) 0.07 0.00-0.02 K/uL Sodium Level 139 136-145 mmol/L Potassium Level 3.4 3.5-5.1 mmol/L Chloride Level 104 98-107 mmol/L Carbon Dioxide Level 28 21-32 mmol/L Anion Gap 7.0 3-11 mmol/L Blood Urea Nitrogen 18 7-18 mg/dl Creatinine 0.90 0.60-1.20 mg/dl Est Creatinine Clear Calc Drug Dose 144.2 ml/min Estimated GFR () 98.1 Estimated GFR (Non- 84.6 BUN/Creatinine Ratio 20.0 10-20 Random Glucose 104 70-99 mg/dl Calcium Level 9.0 8.5-10.1 mg/dl Total Bilirubin 0.3 0.2-1 mg/dl Direct Bilirubin < 0.1 0-0.2 mg/dl Aspartate Amino Transf (AST/SGOT) 18 15-37 U/L Alanine Aminotransferase (ALT/SGPT) 30 12-78 U/L Alkaline Phosphatase 92 45-117 U/L Troponin I < 0.015 3.280 0-0.045 ng/ml Total Protein 7.9 6.4-8.2 gm/dl Albumin 3.7 3.4-5.0 gm/dl Lipase 71 73-393 U/L Human Chorionic Gonadotropin, Qual NEG NEG Bedside Troponin I < 0.030 0-0.045 ng/ml Triglycerides Level 55 0-150 mg/dl Cholesterol Level 143 0-200 mg/dl HDL Cholesterol 50 mg/dl LDL Cholesterol, Calculated 82 mg/dl VLDL Cholesterol, Calculated 11 mg/dl Cholesterol/HDL Ratio 2.9 Activated Partial Thromboplast Time 25.0 21.0-31.0 SECONDS Partial Thromboplastin Ratio 1.0 Test 05/07/17 10:15 05/07/17 12:55 Range/Units Troponin I 2.570 0-0.045 ng/ml
--- NOTE | 2017-05-07 17:11 | Discharge Instructions ---
Discharge Instructions Date of Service May 07, 2017. Admission Reason for Admission: Chest Pain Discharge Discharge Diagnosis / Problem: atypical chest pain, elevated troponins, cardiac cath Discharge Goals Goal(s): Decrease discomfort, Improve function Activity Recommendations Activity Limitations: per Instructions/Follow-up section Shower/Bathe: no limitations . Instructions / Follow-Up Instructions / Follow-Up Hospital Course 32-year-old female with no prior history of heart disease and no family history of early heart disease. She does have a history of obesity which is her only risk factor. She was doing an intense workout yesterday. She had the sudden onset of anxiety with chest pain, shortness of breath and diaphoresis. She decided to present to the emergency department where she was admitted. Patient had troponin first troponin negative but second troponin 3.28 and decision was made by cardiology to perform cardiac cath. The third troponin was downtrended to 2.57. Patient's cardiac cath did show coronary artery disease and she had normal echocardiogram. Also no evidence for Takotsubo cardiomyopathy. 05/07/17 Coronary Anatomy Dominant: Co-dominant Left Main (% Stenosis): Normal LAD (% Stenosis): Normal Circumflex (% Stenosis): Normal RCA (% Stenosis): Normal Left Ventricular Angiography EF (%): 60 Mitral Regurgitation: None Echocardiogram 05/07/17 Left Ventricle * The left ventricle is normal in size. * There is normal left ventricular wall thickness. * Ejection Fraction = 55-60%. * Left ventricular systolic function is normal. Right Ventricle * The right ventricle is normal in size and function. * There is normal right ventricular wall thickness. * The right ventricular systolic function is normal. Atria * The left atrial size is normal. * Right atrial size is normal. * The interatrial septum is intact with no evidence for an atrial septal defect. Mitral Valve * The mitral valve is normal in structure and function. * There is no mitral valve stenosis. * There is no mitral regurgitation noted. Tricuspid Valve * The tricuspid valve is normal in structure and function. * There is trace tricuspid regurgitation. Aortic Valve * The aortic valve is normal in structure and function. * No aortic regurgitation is present. Pulmonic Valve * The pulmonic valve is normal in structure and function. * There is no pulmonic valvular regurgitation. Great Vessels * The aortic root is normal size. * No obvious dissection could be visualized. * The pulmonary artery is normal size. Pericardium/Pleural * There is no pericardial effusion. Discharge Instructions Patient is discharged after being evaluated for chest pain and for work up to rule out acute coronary syndrome. Despite elevated troponin level, there is no evidence for coronary artery disease or cardiomyopathy Patient is advised to follow up with primary care doctor. Patient also noted to have very loud snoring on physical exam and should be evaluated by primary care doctor if she has risk for obstructive sleep apnea. * Do not drive today. * Resume driving when surgeon permits. * Do not make important decisions or sign legal documents today. ACTIVITY RECOMMENDATIONS: Excess manipulation of the wrist should be avoided for the next 24-48 hours. * No lifting over 2 pounds (approximately a 1/2 gallon of milk) with the utilized arm for 24 hours. * No strenuous activity such as bowling or tennis for 3 days. * Keep the site of the procedure covered with a bandage for 24 hours. *You may shower the day after the procedure. Do not take a tub bath or submerge the puncture site in water for the next 3 days. *Do not operate any motorized equipment for 3 days. SPECIAL CARE INSTRUCTIONS: The site may be slightly bruised and sore following your procedure. Should any of the following occur, contact the Dr. who performed your procedure. 1. Redness/inflammation, swelling, chills, or fever, or colored drainage at procedure site within 3-7 days after your procedure. 2. Coldness, discoloration, ongoing numbness, severe pain, or swelling. Expect mild tingling of hand and tenderness at the puncture site for up to three days. If this persists beyond three days, or other symptoms develop, notify the Dr. who performed your procedure. BLEEDING: If the procedure site on your wrist begins to bleed, do not panic 1. Place 1 or 2 fingers firmly just slightly above the insertion site to stop the bleeding. You may be able to feel your pulse as you hold pressure. 2. Lift your finger after 5 minutes to see if the bleeding has stopped. 3. Once the bleeding has stopped, gently wipe the wrist area clean with a bandage. * If the bleeding from your wrist does not stop after 10 minutes, or if there is a large amount of bleeding or spurting, call 911 (do not drive yourself to the hospital). SKIN IRRITATION: * You may experience some redness and/or swelling in the area where radiation was administered. If any skin irritation occurs, please contact your family physician. Call your doctor if: * Temperature above 101 degrees * Pain not relieved by pain medicine ordered * There is increased drainage or redness from any incision * You have any unanswered questions or concerns. Current Hospital Diet Patient's current hospital diet: AHA Diet (Heart Healthy) Discharge Diet Recommended Diet: AHA Diet (Heart Healthy) Pending Studies Studies pending at discharge: no Laboratory Results 05/07/17 00:30 Red Blood Count 5.02, Mean Corpuscular Volume 80.1, Mean Corpuscular Hemoglobin 25.1, Mean Corpuscular Hemoglobin Concent 31.3, Mean Platelet Volume 9.9, Neutrophils (%) (Auto) 55.4, Lymphocytes (%) (Auto) 33.6, Monocytes (%) (Auto) 7.7, Eosinophils (%) (Auto) 2.5, Basophils (%) (Auto) 0.2, Neutrophils # (Auto) 7.04, Lymphocytes # (Auto) 4.28, Monocytes # (Auto) 0.98, Eosinophils # (Auto) 0.32, Basophils # (Auto) 0.03 05/07/17 00:30 Test 05/07/17 00:30 05/07/17 00:39 05/07/17 07:08 05/07/17 08:55 White Blood Count 12.72 K/uL (4.8-10.8) Red Blood Count 5.02 M/uL (4.2-5.4) Hemoglobin 12.6 g/dL (12.0-16.0) Hematocrit 40.2 % (37-47) Mean Corpuscular Volume 80.1 fL (80-100) Mean Corpuscular Hemoglobin 25.1 pg (25-34) Mean Corpuscular Hemoglobin Concent 31.3 g/dl (32-36) Platelet Count 217 K/uL (130-400) Mean Platelet Volume 9.9 fL (7.4-10.4) Neutrophils (%) (Auto) 55.4 % Lymphocytes (%) (Auto) 33.6 % Monocytes (%) (Auto) 7.7 % Eosinophils (%) (Auto) 2.5 % Basophils (%) (Auto) 0.2 % Neutrophils # (Auto) 7.04 K/uL (1.4-6.5) Lymphocytes # (Auto) 4.28 K/uL (1.2-3.4) Monocytes # (Auto) 0.98 K/uL (0.11-0.59) Eosinophils # (Auto) 0.32 K/uL (0-0.5) Basophils # (Auto) 0.03 K/uL (0-0.2) RDW Standard Deviation 44.9 fL (36.4-46.3) RDW Coefficient of Variation 15.5 % (11.5-14.5) Immature Granulocyte % (Auto) 0.6 % Immature Granulocyte # (Auto) 0.07 K/uL (0.00-0.02) Anion Gap 7.0 mmol/L (3-11) Est Creatinine Clear Calc Drug Dose 144.2 ml/min Estimated GFR () 98.1 Estimated GFR (Non- 84.6 BUN/Creatinine Ratio 20.0 (10-20) Calcium Level 9.0 mg/dl (8.5-10.1) Total Bilirubin 0.3 mg/dl (0.2-1) Direct Bilirubin < 0.1 mg/dl (0-0.2) Aspartate Amino Transf (AST/SGOT) 18 U/L (15-37) Alanine Aminotransferase (ALT/SGPT) 30 U/L (12-78) Alkaline Phosphatase 92 U/L (45-117) Total Protein 7.9 gm/dl (6.4-8.2) Albumin 3.7 gm/dl (3.4-5.0) Lipase 71 U/L (73-393) Human Chorionic Gonadotropin, Qual NEG (NEG) Bedside Troponin I < 0.030 ng/ml (0-0.045) Triglycerides Level 55 mg/dl (0-150) Cholesterol Level 143 mg/dl (0-200) HDL Cholesterol 50 mg/dl LDL Cholesterol, Calculated 82 mg/dl VLDL Cholesterol, Calculated 11 mg/dl Cholesterol/HDL Ratio 2.9 Activated Partial Thromboplast Time 25.0 SECONDS (21.0-31.0) Partial Thromboplastin Ratio 1.0 Test 05/07/17 10:15 05/07/17 12:55 Troponin I 2.570 ng/ml (0-0.045) Lipid Panel Test 05/07/17 07:08 Range/Units Triglycerides Level 55 0-150 mg/dl Cholesterol Level 143 0-200 mg/dl HDL Cholesterol 50 mg/dl Cholesterol/HDL Ratio 2.9 LDL Cholesterol, Calculated 82 mg/dl Medical Emergencies . Who to Call and When: Medical Emergencies: If at any time you feel your situation is an emergency, please call 911 immediately. . Non-Emergent Contact Non-Emergency issues call your: Primary Care Provider . . "Provider Documentation" section prepared by Gonzalo Tracey. .
--- NOTE | 2017-05-07 17:13 | Discharge Summary ---
Discharge Summary Date of Service May 07, 2017. Discharge Summary Admission Date: May 07, 2017 at 02:38 Discharge Date: May 07, 2017 Principal Diagnosis: atypical chest pain, elevated troponins, cardiac cath performed - no evidence of coronary artery disease or cardiomyopathy Consultations: cardiology. Dr. Ferrer Medication Reconciliation Continued Medications: Alprazolam (Xanax) 0.5 Mg Tab 0.5 MG PO TID PRN for Anxiety Citalopram Hydrobromide (Citalopram Hydrobromide) 10 Mg Tab 10 MG PO HS Admission Information HPI (per Admitting provider): The patient is a 32-year-old female presenting to the emergency room with midsternal chest pain after an intense workout at the gym. She reports that her chest pain came on after getting finished with the workout she is a non- smoker who has no known risk factors for cardiac disease other than obesity. She reports feeling anxious, nauseous, and sweaty in association with the pain. She denies any shortness of breath abdominal pain, vomiting, diarrhea, no back pain, or control or history of blood clots. 3 years ago she reports having chest pain with during a walking routine and received a stress test that was normal. She reports that nitroglycerin given in the ER took the chest pain away. She received aspirin 325 mg. In the ER she was afebrile and hemodynamically stable saturating 100% on room air. Physical exam was remarkable for minimal tenderness to palpation in the midsternal region. Lab results revealed a white blood cell count of 12,000, the patient has normal renal function. Troponin was negative. The ER physician noted T-wave inversions and minimal ST depressions in 1 and aVL on each rate of 86. These changes normalized with resolution of pain. Chest x-ray was performed with no acute consolidation pneumothorax. Of note she has a history of panic attacks and anxiety and was given a dose of Ativan in the ER that did not resolve. she reports new directions in her life that are positive with anxiety under control for the most part. Physical Exam (per Admitting): General Appearance: no apparent distress, + obese Head: normocephalic, atraumatic Eyes: normal inspection, PERRL, sclerae normal ENT: normal ENT inspection, pharynx normal Neck: supple, no adenopathy, trachea midline Respiratory/Chest: chest non-tender, lungs clear, normal breath sounds, no respiratory distress, no accessory muscle use Cardiovascular: no edema, no gallop, no JVD, no murmur, normal peripheral pulses, + tachycardia Abdomen/GI: normal bowel sounds, non tender, soft, no organomegaly Back: normal inspection Extremities/Musculoskelatal: normal inspection, no calf tenderness, no pedal edema, normal range of motion 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 She does have a history of obesity which is her only risk factor. She was doing an intense workout yesterday. She had the sudden onset of anxiety with chest pain, shortness of breath and diaphoresis. She decided to present to the emergency department where she was admitted. Patient had troponin first troponin negative but second troponin 3.28 and decision was made by cardiology to perform cardiac cath. The third troponin was downtrended to 2.57. Patient's cardiac cath did show coronary artery disease and she had normal echocardiogram. Also no evidence for Takotsubo cardiomyopathy. 05/07/17 Coronary Anatomy Dominant: Co-dominant Left Main (% Stenosis): Normal LAD (% Stenosis): Normal Circumflex (% Stenosis): Normal RCA (% Stenosis): Normal Left Ventricular Angiography EF (%): 60 Mitral Regurgitation: None Echocardiogram 05/07/17 Left Ventricle * The left ventricle is normal in size. * There is normal left ventricular wall thickness. * Ejection Fraction = 55-60%. * Left ventricular systolic function is normal. Right Ventricle * The right ventricle is normal in size and function. * There is normal right ventricular wall thickness. * The right ventricular systolic function is normal. Atria * The left atrial size is normal. * Right atrial size is normal. * The interatrial septum is intact with no evidence for an atrial septal defect. Mitral Valve * The mitral valve is normal in structure and function. * There is no mitral valve stenosis. * There is no mitral regurgitation noted. Tricuspid Valve * The tricuspid valve is normal in structure and function. * There is trace tricuspid regurgitation. Aortic Valve * The aortic valve is normal in structure and function. * No aortic regurgitation is present. Pulmonic Valve * The pulmonic valve is normal in structure and function. * There is no pulmonic valvular regurgitation. Great Vessels * The aortic root is normal size. * No obvious dissection could be visualized. * The pulmonary artery is normal size. Pericardium/Pleural * There is no pericardial effusion. Discharge Instructions Patient is discharged after being evaluated for chest pain and for work up to rule out acute coronary syndrome. Despite elevated troponin level, there is no evidence for coronary artery disease or cardiomyopathy Patient is advised to follow up with primary care doctor. Patient also noted to have very loud snoring on physical exam and should be evaluated by primary care doctor if she has risk for obstructive sleep apnea. * Do not drive today. * Resume driving when surgeon permits. * Do not make important decisions or sign legal documents today. ACTIVITY RECOMMENDATIONS: Excess manipulation of the wrist should be avoided for the next 24-48 hours. * No lifting over 2 pounds (approximately a 1/2 gallon of milk) with the utilized arm for 24 hours. * No strenuous activity such as bowling or tennis for 3 days. * Keep the site of the procedure covered with a bandage for 24 hours. *You may shower the day after the procedure. Do not take a tub bath or submerge the puncture site in water for the next 3 days. *Do not operate any motorized equipment for 3 days. SPECIAL CARE INSTRUCTIONS: The site may be slightly bruised and sore following your procedure. Should any of the following occur, contact the Dr. who performed your procedure. 1. Redness/inflammation, swelling, chills, or fever, or colored drainage at procedure site within 3-7 days after your procedure. 2. Coldness, discoloration, ongoing numbness, severe pain, or swelling. Expect mild tingling of hand and tenderness at the puncture site for up to three days. If this persists beyond three days, or other symptoms develop, notify the Dr. who performed your procedure. BLEEDING: If the procedure site on your wrist begins to bleed, do not panic 1. Place 1 or 2 fingers firmly just slightly above the insertion site to stop the bleeding. You may be able to feel your pulse as you hold pressure. 2. Lift your finger after 5 minutes to see if the bleeding has stopped. 3. Once the bleeding has stopped, gently wipe the wrist area clean with a bandage. * If the bleeding from your wrist does not stop after 10 minutes, or if there is a large amount of bleeding or spurting, call 911 (do not drive yourself to the hospital). SKIN IRRITATION: * You may experience some redness and/or swelling in the area where radiation was administered. If any skin irritation occurs, please contact your family physician. Call your doctor if: * Temperature above 101 degrees * Pain not relieved by pain medicine ordered * There is increased drainage or redness from any incision * You have any unanswered questions or concerns. Total time spent on discharge = 60 minutes This includes examination of the patient, discharge planning, medication reconciliation, and communication with other providers. Discharge Instructions see above
== END 2017-05-07 17:55 | disposition home or self-care (01) ==
LOC: C.EDB 00:22 → C.MED 02:38 → ENRESERV 03:01 → C.2T 12:11
PROVIDERS: ADMIT Hospitalist; ATTEND Hospitalist
DX: R07.89 Other chest pain (principal); E66.01 Morbid (severe) obesity due to excess calories; R79.89 Other specified abnormal findings of blood chemistry; F41.9 Anxiety disorder, unspecified; Z88.1 Allergy status to other antibiotic agents; Z88.0 Allergy status to penicillin